=== PATIENT | female | born 2000 | race Asian ===

== ENCOUNTER → 2023-06-09 15:52 | Outpatient (CLI) | payer OTHER, SELFPAY ==
[2023-06-09 17:45] LABS: Add Manual Diff / Slide Review NO; Basophils Absolute Auto 0 /uL (0-100); Basophils Percent Auto 0.2 % (0-2); Eosinophils Absolute Auto 100 /uL (0-450); Eosinophils Percent Auto 0.7 % (2-4); Hemoglobin 10.2 g/dL (12.0-16.0); Lymphocytes Absolute Auto 1200 /uL (1100-4500); Lymphocytes Percent Auto 11.4 % (25-40); Mean Corpuscular HGB Conc 33.9 % (30-36); Mean Corpuscular Hemoglobin 20.7 PG (26-34); Mean Corpuscular Volume 61.2 fL (80-100); Monocytes Absolute Auto 600 /uL (0-900); Monocytes Percent Auto 5.4 % (3-14); Neutrophils Absolute Auto 8800 /uL (1500-7000); Neutrophils Percent Auto 82.3 % (50-75); Platelet Count 284 X10^3/uL (150-400); Red Blood Cell Count 4.91 X10^6/uL (4.0-5.2); Red Cell Distribution Width 15.9 % (11.6-14.8); White Blood Cell Count 10.7 X10^3/uL (4.5-11.0)
[2023-06-09 17:59] LABS: Microcytosis 1+
[2023-06-09 18:27] LABS: Appearance Urine UA CLEAR; Bilirubin Urine UA NEGATIVE (NEGATIVE); Color Urine UA YELLOW; Glucose Urine UA NEGATIVE (Negative); Ketones Urine UA NEGATIVE (NEGATIVE); Leukocyte Esterase Urine UA TRACE (NEGATIVE); Nitrite Urine UA NEGATIVE (Negative); Occult Blood Urine UA NEGATIVE (Negative); Protein Urine UA NEGATIVE (Negative); Specific Gravity Urine UA <=1.005 (1.000-1.035); Urobilinogen Urine UA 0.2 E.U./dL (0.2)
[2023-06-09 18:47] LABS: Bacteria Urine None Seen; Culture Indicated Urine Cult Not Indicated; RBC Urine None Seen (0-5/HPF); Squamous Epithelial Cell Urine 0-1 /HPF (0-5/HPF); Urine Volume 10mL (spun); WBC Urine None Seen (0-5/HPF)
[2023-06-09 19:45] LABS: Urine N gonorrhoeae NOT DETECTED
[2023-06-09 19:59] LABS: Urine Chlamydia NOT DETECTED
[2023-06-10 09:46] LABS: HEMOLYSIS < 15 (0-50); Iron 98 ug/dL (37-170)
[2023-06-10 09:57] LABS: Percent Iron Saturation 30 % (15-50); Total Iron Binding Capacity 332 ug/dL (265-497); Transferrin 297 mg/dL (206-381)
[2023-06-10 15:43] LABS: Hepatitis B Surface Antigen NEGATIVE s/c (NEGATIVE)
[2023-06-10 16:13] LABS: HIV 1 & 2 Ab/Ag 4th Gen Combo NEGATIVE (NEGATIVE); Hep C Virus Ab w/Reflex Quant NEGATIVE s/c (NEGATIVE)
[2023-06-11 03:30] LABS: RPR Screen Non Reactive (Non Reactive)
[2023-06-11 08:42] LABS: Varicella IgG Antibody <135 index (Immune >165)
== END ==
PROVIDERS: Referring Provider Family Medicine; Visit Provider Family Medicine
DX: Z34.01 Encounter for supervision of normal first pregnancy, first trimester (principal); R79.89 Other specified abnormal findings of blood chemistry
CPT/HCPCS: 36415; 80055; 81003; 81015; 83540; 83550; 86787; 86803; 86850; 86900; 86901; 87086; 87389; 87491; 87591

== ENCOUNTER → 2023-06-17 07:50 | Outpatient (CLI) | payer OTHER, SELFPAY ==
--- NOTE | 2023-06-17 07:52 | DI.US.S_ITS ---
PROCEDURE: US OB >= 14 WEEKS FETUS INDICATIONS: anatomy, uncertain dates OUTSIDE/PRIOR DATING DATA: Last menstrual period (LMP): 02/07/2023 LMP-based estimated date of delivery (DOUGLAS): 11/14/2023 First dating scan (date and location): 06/17/2023 Estimated date of delivery (DOUGLAS) from first dating scan: 11/24/2023 TECHNIQUE: Real-time scanning was performed of the fetus, with image documentation and biometric measurements. Endovaginal scanning: Not performed COMPARISON: None. FINDINGS: General: A single living intrauterine gestation is present. Presentation: Variable Placenta: Placental position is posterior, without previa. Amniotic fluid index: 8.2 cm, normal range is 5-24 cm. Single deepest vertical pocket is 2.4 cm. heart rate: 139 beats per minute. Maternal cervical canal: 3.3 cm long. Normal lower limit is 2.5 cm. biometrics: Biparietal diameter: 3.7 cm, 17 weeks 2 days Head circumference: 13.4 cm, 17 weeks 0 days Abdominal circumference: 11.9 cm, 17 weeks 4 days Femur length: 2.2 cm, 16 weeks 4 days Clinically estimated gestational age: 18 weeks 0 days Composite gestational age from present scan: 17 weeks 1 day Estimated weight and percentile: 182 g IMPRESSION: 1. Single live intrauterine . Estimated gestational age is 17 weeks 1 day, corresponding to an ultrasound DOUGLAS of 11/24/2023. 2. Recommend follow-up anatomic survey at 18-20 weeks gestation. Approved by: Ricky Dukes M.D. on 06/17/2023 at 8:53
[2023-06-17 09:46] LABS: Miscellaneous to LabCorp NATERA
== END ==
PROVIDERS: PCP Family Medicine; Referring Provider Family Medicine; Visit Provider Family Medicine
DX: Z3A.17 17 weeks gestation of pregnancy; Z34.02 Encounter for supervision of normal first pregnancy, second trimester
CPT/HCPCS: 36415; 76811

== ENCOUNTER → 2023-07-05 12:36 | Outpatient (CLI) | payer OTHER, SELFPAY ==
--- NOTE | 2023-07-05 12:37 | DI.US.S_ITS ---
PROCEDURE: US OB >= 14 WEEKS FETUS INDICATIONS: anatomy scan OUTSIDE/PRIOR DATING DATA: Last menstrual period (LMP): 02/07/2023. LMP-based estimated date of delivery (DOUGLAS): 11/14/2023. First dating scan (date and location): 06/17/2023. Estimated date of delivery (DOUGLAS) from first dating scan: 11/24/2023. The calculations are made using the ultrasound DOUGLAS of 11/24/2023. TECHNIQUE: Real-time scanning was performed of the fetus, with image documentation and biometric measurements. Endovaginal scanning: Not performed COMPARISON: [facility], , OB >= 14 WEEKS FETUS, 06/17/2023, 8:06. FINDINGS: General: A single living intrauterine gestation is present. Presentation: Breech. Placenta: Placental position is posterior , without previa. Amniotic fluid index: 9.1 cm, normal range is 5-24 cm. Single deepest vertical pocket is 2.7 cm. heart rate: 143 beats per minute. Maternal cervical canal: 3.3 cm long. Normal lower limit is 2.5 cm. biometrics: Biparietal diameter: 4.3 cm, 19 weeks 0 days Head circumference: 16.1 cm, 18 weeks 6 days Abdominal circumference: 13.5 cm, 19 weeks 0 days Femur length: 2.9 cm, 18 weeks 6 days Clinically estimated gestational age: 19 weeks 5 days Composite gestational age from present scan: 19 weeks 0 days Estimated weight and percentile: 264 g, 11 percentile Anatomic survey: Neuro: Ventricles are non-dilated at less than 10 mm. Cisterna magna is normal at 3-11 mm. Cerebellum is normal in size and morphology. Nuchal skin fold: Normal at less than 6 mm between 14-21 weeks gestational age. Face: Nose and lips, facial profile are normal. Spine: No evidence for spina bifida. Heart: 4-chambered heart is present, with normal ventricular outflow tracts. Diaphragm: Diaphragm is intact. Stomach: Left-sided stomach is present. Kidneys: No hydronephrosis. Normal is less than 5 mm in 2nd trimester, less than 7 mm in 3rd trimester. Cord: 3-vessel cord has orthotopic insertion. Bladder: Normal in size. Extremities: All 4 extremities identified. IMPRESSION: 1. Single live intrauterine consistent with 19 weeks and 0 days. 2. Normal anatomic survey. 3. Amniotic fluid index of 9.1 cm. 4. Estimated weight is in the 11th percentile. We strive to produce accurate, complete, and clear reports of imaging services. To assist us in improving patient care, this report was composed using standard report templates and voice recognition software. Therefore, it may contain abnormal punctuation, insertions and/or omissions. Occasional wrong-word or sound-alike substitutions may occur. Though we review the report and make efforts to correct it, we do recommend that the report be read carefully in proper context to recognize any text inaccuracies. Dictated by: Don Wilson M.D. on 07/05/2023 at 16:10 Approved by: Don Wilson M.D. on 07/05/2023 at 16:15
== END ==
LOC: US 12:36
PROVIDERS: PCP Family Medicine; Referring Provider Family Medicine; Visit Provider Family Medicine
DX: Z34.02 Encounter for supervision of normal first pregnancy, second trimester (principal); Z3A.19 19 weeks gestation of pregnancy
CPT/HCPCS: 76811

== ENCOUNTER → 2023-07-09 15:28 | Outpatient (CLI) | payer OTHER, SELFPAY | LOC: LAB 15:29 | PROVIDERS: PCP Family Medicine; Referring Provider Family Medicine; Visit Provider Family Medicine | DX: Z34.00 Encounter for supervision of normal first pregnancy, unspecified trimester (principal); D50.9 Iron deficiency anemia, unspecified | CPT/HCPCS: 36415; 83020 ==

== ENCOUNTER → 2023-08-06 15:11 | Outpatient (CLI) | payer OTHER, SELFPAY ==
--- NOTE | 2023-08-06 15:18 | DI.US.S_ITS ---
PROCEDURE: US OB LIMITED INDICATIONS: GROWTH ABNORMALITY OUTSIDE/PRIOR DATING DATA: Last menstrual period (LMP): 02/07/2023. LMP-based estimated date of delivery (DOUGLAS): 11/14/2023. First dating scan (date and location): 06/17/2023. Estimated date of delivery (DOUGLAS) from first dating scan: 11/24/2023. TECHNIQUE: Real-time scanning was performed of the fetus, with image documentation. COMPARISON: [facility], , OB >= 14 WEEKS FETUS, 07/05/2023, 12:50. FINDINGS: A single living intrauterine gestation is present. Presentation: Vertex Placenta: Placental position is posterior, without previa. Amniotic fluid index: 10.4 cm, normal range is 5-24 cm. Single deepest vertical pocket is 3.4 cm. heart rate: 157 beats per minute. Maternal cervical canal: 3 cm long. Normal lower limit is 2.5 cm. BPD is 5.7 cm, 23 weeks and 2 days Head circumference is 21 cm, 23 weeks Abdominal circumference is 18.5 cm, 23 weeks and 2 days Femur length is 4.4 cm, 24 weeks and 2 days Estimated gestational age is 24 weeks and 2 days. Biometry today measures 23 weeks and 3 days, EFW 616 g at the 17th percentile IMPRESSION: Living intrauterine gestation with EFW at the 17th percentile, within the lower limit of normal. Consider continued follow-up at clinical discretion. PAM is within normal limits. Dictated by: Josiah Donis M.D. on 08/06/2023 at 17:12 Approved by: Josiah Donis M.D. on 08/06/2023 at 17:15
[2023-08-06 16:31] LABS: Natera Collection Specimen Collected
== END ==
PROVIDERS: PCP Family Medicine; Referring Provider Student in an Organized Health Care Education/Training Program; Visit Provider Student in an Organized Health Care Education/Training Program
DX: D58.2 Other hemoglobinopathies (principal); O99.112 Other diseases of the blood and blood-forming organs and certain disorders involving the immune mechanism complicating pregnancy, second trimester; Z31.430 Encounter of female for testing for genetic disease carrier status for procreative management; Z3A.24 24 weeks gestation of pregnancy
CPT/HCPCS: 36415; 76815

== ENCOUNTER → 2023-09-03 12:33 | Outpatient (CLI) | payer OTHER, SELFPAY ==
[2023-09-03 14:47] LABS: GTT (PREG) 1 Hour PP 50gm Dose 115 mg/dL (76-139)
== END ==
PROVIDERS: PCP Family Medicine; Referring Provider Family Medicine; Visit Provider Family Medicine
DX: Z34.00 Encounter for supervision of normal first pregnancy, unspecified trimester (principal)
CPT/HCPCS: 36415; 82950

== ENCOUNTER → 2023-10-08 10:22 | Outpatient (CLI) | payer OTHER, SELFPAY ==
--- NOTE | 2023-10-08 10:22 | DI.US.S_ITS ---
PROCEDURE: US OB FOLLOW UP INDICATIONS: poor growth OUTSIDE/PRIOR DATING DATA: Last menstrual period (LMP): 02/07/2023. LMP-based estimated date of delivery (DOUGLAS): 11/14/2023. First dating scan (date and location): 06/17/2023. Estimated date of delivery (DOUGLAS) from first dating scan: 11/24/2023. The calculations are made using the sonographic DOUGLAS of 11/24/2023. TECHNIQUE: Real-time scanning was performed of the fetus, with image documentation and biometric measurements. Endovaginal scanning: Not performed COMPARISON: None. FINDINGS: General: A single living intrauterine gestation is present. Presentation: Breech. Placenta: Placental position is posterior , without previa. Amniotic fluid index: 7.2 cm, normal range is 5-24 cm. Single deepest vertical pocket is 3.1 cm. heart rate: 131 beats per minute. Maternal cervical canal: 2.3 cm long. Normal lower limit is 2.5 cm. biometrics: Biparietal diameter: 7.8 cm, 31 weeks 2 days Head circumference: 31.4 cm, 35 weeks 1 day Abdominal circumference: 27 cm, 31 weeks 1 day Femur length: 6.4 cm, 33 weeks 2 days Clinically estimated gestational age: 33 weeks 2 days Composite gestational age from present scan: 32 weeks 5 days Estimated weight and percentile: 1922 g, 14th percentile Anatomic survey: Neuro: Ventricles are normal at less than 10 mm. Cisterna magna is normal at 3-11 mm. Cerebellum is normal in size and morphology. Nuchal skin fold: Normal at less than 6 mm between 14 and 21 weeks gestational age. Face: Nose and lips, facial profile are normal. Spine: No evidence for spina bifida. Heart: 4-chambered heart is present, with normal ventricular outflow tracts. Diaphragm: Diaphragm is intact. Stomach: Left-sided stomach is present. Kidneys: No hydronephrosis. Normal is less than 5 mm in 2nd trimester, less than 7 mm in 3rd trimester. Cord: 3 vessel cord has orthotopic insertion. Bladder: Normal in size. Extremities: All 4 extremities are visualized. IMPRESSION: Single living intrauterine at 33 weeks 2 days, DOUGLAS of 11/24/2023. Estimated weight of 1922 g, 14th percentile. Incompetent cervix, measuring 2.3 cm. This may be underestimated due to transabdominal view. Dedicated transvaginal view can be considered. Normal anatomy survey. We strive to produce accurate, complete, and clear reports of imaging services. To assist us in improving patient care, this report was composed using standard report templates and voice recognition software. Therefore, it may contain abnormal punctuation, insertions and/or omissions. Occasional wrong-word or sound-alike substitutions may occur. Though we review the report and make efforts to correct it, we do recommend that the report be read carefully in proper context to recognize any text inaccuracies. Dictated by: Cristian Prabhakar M.D. on 10/08/2023 at 12:36 Approved by: Cristian Prabhakar M.D. on 10/08/2023 at 12:38
== END ==
PROVIDERS: PCP Family Medicine; Referring Provider Family Medicine; Visit Provider Family Medicine
DX: O34.33 Maternal care for cervical incompetence, third trimester (principal); Z3A.33 33 weeks gestation of pregnancy
CPT/HCPCS: 76816

== ENCOUNTER 2023-10-22 06:03 | Observation (INO) | payer OTHER, SELFPAY ==
[2023-10-22] MEDS: TERBUTALINE 1 MG/ML VIAL 0.25 MG SUBCUT (06:51)
[2023-10-22] MEDS: MINERAL OIL 30 ML UDC TOP (07:28)
--- NOTE | 2023-10-22 08:15 | PM.PROC.1 ---
Procedures Date/Time Date of procedure: 10/22/23 Time of procedure: 07:15 General Procedure description: External Cephalic Version Risks and benefits discussed with patient and partner. Verbal and written consent obtained. NST category 1 prior to procedure. Given SubQ terbutaline 20 minutes prior to starting. Patient positioned, mineral oil applied to abdomen. 3 attempts performed, 1 clock barriga and [address] Dr[address] Tellez and myself. FHT checked between each attempt, 140s. ECV not successful. Well tolerated by patient. No complications. Monitored for 1 hour following procedure. FHT category 1. Patient has routine f/u next week. Return precautions discussed. Plan to schedule for pCS at 39 weeks, trial of ECV prior to surgery.
[2023-10-23 22:06] LABS: Strep Grp B PCR NEG for Grp B Strep
== END 2023-10-22 08:55 | disposition home or self-care (01) ==
LOC: LABOR 06:06
PROVIDERS: Admitting Provider Family Medicine; PCP Family Medicine; Referring Provider Family Medicine; Visit Provider Family Medicine
DX: O32.1XX0 Maternal care for breech presentation, not applicable or unspecified (principal); Z3A.36 36 weeks gestation of pregnancy
CPT/HCPCS: 59025; 59050; 59412; 76815; 87653; 96372; G0378; A9270; G0379

== ENCOUNTER 2023-11-08 06:01 | Inpatient (IN) | payer OTHER, SELFPAY ==
[2023-11-08 07:05] VITALS: BP 117/70
--- NOTE | 2023-11-08 07:33 | PM.OBHP.1 ---
OB HPI Date/Time Date of admission: 11/08/23 Date Patient Seen: 11/08/23 History of Present Condition Chief complaint: INPT : 1 Para: 0 Estimated Gestational Age (weeks): 39w1d Narrative: Blaise Welsh is a 23 year old female at 39w1d today by LMP presenting for primary CS for breech presentation. complicated by Hgb E heterozygous. Feeling well today. No contractions, VB, LOF. Good FM. Indications Operative indications ( section): malpresentation History of Present care: good care Dating criteria: LMP confirmed by 2nd trimester US Preadmission Labs Blood type: B (+) positive [facility] Medical History (Updated 08/06/23 @ 13:55 by Marian Pederson MD) Heterozygous for Hb E Microcytic anemia Healthy adult Surgical History (Updated 06/09/23 @ 15:14 by Lola Melvin MD) History of nasal surgery No pertinent past surgical history Family History (Updated 06/07/23 @ 15:14 by Rosie Holden RN) Father Hypertension Mother Hypertension Grandmother Hypertension Grandfather Cancer Social History marital status: number of children: 0 household members: spouse and family ([id number]) lives independently: Yes caregiver/support person: No housing: house pets and animals: Yes (2 dogs) education level: high school occupational status: employed (waiting tables) current occupational exposures/hazards: Yes special brando needs: No travel history: recent (domestic only) seatbelt use: always helmet use: Yes water heater temp set < 120 deg: Yes working smoke detector in home: Yes fire extinguisher in home: No carbon monox detector in home: Yes firearms in home: Yes firearms unloaded and locked: Yes do you feel safe at home: Yes (answered by ) Smoking Status: Never smoker second hand exposure: No alcohol intake: former (occasionally when not ) substance use type: marijuana (not for a couple of years) during the past year weight has: remained stable well-balanced diet: rarely or never daily servings fruits/ve-1 caffeine: Yes (occasional tea) Type(s) of exercise: none and other (physical job waiting tables) Meds Home Medications and Allergies Home Medications Medication Instructions Recorded Confirmed Type vit no.95-ferrous 1 tab PO DAILY #30 tabs 10/01/23 10/28/23 Rx fumarate 28 mg-folic acid 800 mcg tablet ( Multivitamins) Allergies Allergy/AdvReac Type Severity Reaction Status Date / Time No Known Drug Allergies Allergy Verified 10/28/23 15:38 OB Exam Narrative Exam Narrative: GEN: NAD, well appearing, pleasant CV: RRR Pulm:normal WOB, CTAB Skin: no visible rashes, WWP Psych: normal affect Neuro: normal gait, symmetric movement BSUS breech FHT category 1 Assessment and Plan Assessment and Plan Assessment and Plan narrative: Primary CS for breech presentation -Admit to L&D -Routine orders -Pre op Ancef -Declines ECV prior Time-Based Coding :: [TOTAL MINUTES] spent with patient and on the chart (including review of chart, obtaining history, exam, reviewing outside data, placing orders, documenting exam and treatment plan, and counseling patient) on [DATE].
[2023-11-08] MEDS: CITRIC ACID/SODIUM CITRATE 15 ML SOLUTION 30 ML PO (07:46)
[2023-11-08] MEDS: CEFAZOLIN 2 GM/100 ML PREMIX 100 ML IV (08:07)
[2023-11-08] MEDS: ACETAMINOPHEN IV 1,000 MG/100 ML VIAL 400 MG IV (08:07)
--- NOTE | 2023-11-08 08:22 | SUR.OPER ---
Supine on Padded OR bed, head on pillow, safety belt at thigh, arms secured on padded arm boards at <90 degrees abduction. Bump under right buttock. Legs uncrossed with pillow under knees, gel pad to heels, tape over blanket to lower legs.
[2023-11-08 08:29] LABS: Add Manual Diff / Slide Review NO; Basophils Absolute Auto 0 /uL (0-100); Basophils Percent Auto 0.2 % (0-2); Eosinophils Absolute Auto 0 /uL (0-450); Eosinophils Percent Auto 0.4 % (2-4); Hematocrit 33.7 % (36-46); Hemoglobin 11.4 g/dL (12.0-16.0); Lymphocytes Absolute Auto 1900 /uL (1100-4500); Lymphocytes Percent Auto 17.2 % (25-40); Mean Corpuscular HGB Conc 33.7 % (30-36); Mean Corpuscular Hemoglobin 21.6 PG (26-34); Mean Corpuscular Volume 64.3 fL (80-100); Monocytes Absolute Auto 800 /uL (0-900); Monocytes Percent Auto 7.6 % (3-14); Neutrophils Absolute Auto 8100 /uL (1500-7000); Neutrophils Percent Auto 74.6 % (50-75); Platelet Count 248 X10^3/uL (150-400); Red Blood Cell Count 5.25 X10^6/uL (4.0-5.2); White Blood Cell Count 10.9 X10^3/uL (4.5-11.0)
[2023-11-08 08:47] LABS: Anisocytosis 2+; Microcytosis 2+
[2023-11-08 09:02] VITALS: BP 127/51; PULSE 82; RESP 18; TEMP 36.2; O2SAT 99
--- NOTE | 2023-11-08 09:05 | PM.OBCS.1 ---
Operative Date/Time/Diagnoses Date of procedure: 11/08/23 Pre-op diagnosis: primary section for breech presentation Post-op diagnosis: same Procedure & Clinicians Procedure: OPERATIVE COURSE: The patient was taken to the operating room where spinal anesthesia was placed. She was then prepared and draped in the normal sterile fashion in the dorsal supine position with a leftward tilt. Anesthesia was tested and found to be adequate. A Pfannensteil skin incision was then made with the scalpel and carried through to the underlying layer of fascia with the scalpel. The fascia was incised in the midline and the incision extended laterally with the Flores scissors. The superior aspect of the fascial incision was then grasped with Morgan clamps, elevated with the help of the surgical device sales representative, and the underlying rectus muscles dissected off bluntly and sharply where needed. Attention was then turned to the inferior aspect of the incision which, in a similar fashion, was grasped, tented up with Morgan clamps, and the rectus muscle dissected off bluntly and sharply with Flores scissors. The rectus muscles were then in the midline, and the peritoneum was identified and entered bluntly. The peritoneal incision was then extended with good visualization of the bladder. Retraction was provided by the surgical device sales representative. The bladder blade was then inserted and the vesicouterine peritoneum identified. The lower uterine segment incised in a transverse fashion with the scalpel, with the surgical device sales representative providing suction. The uterine incision was then extended superolaterally by pulling superolaterally on both sides. Membranes were ruptured and fluid was clear. The bladder blade was removed the was delivered using standard breech maneuvers. Cord blood was collected. The placenta was then delivered with gentle cord traction. The uterus was then exteriorized and cleared of all clots and debris. The uterine incision was repaired with 0-vicryl in a running, locked fashion. A second layer of the same suture was used to obtain excellent hemostasis. The uterus was returned to the abdomen. The gutters were cleared of all clots. Hysterotomy was investigated and found to be hemostatic. The fascia was reapproximated with 0-vicryl in a running fashion. The subcutaneous tissue was reapproximated with 2-0 vicryl. The skin was closed with 3-0 vicryl. The surgical device sales representative helped with retraction during closures. SPONGE AND NEEDLE COUNTS: Correct x3. DRESSING: pressure dressing ANTICOAGULATION: SCDs applied prior to Surgery Preop antibiotics given (see MAR). The patient was taken to recovery room having tolerated procedure well. Same procedure as scheduled: Yes Surgeon: Lola Melvin [employer] Designer: Jacqui Sim Anesthesia Type: Spinal Operative Notes Estimated Blood Loss (mL): 700 Post-operative Condition: stable Disposition: PACU
[2023-11-08 09:07] VITALS: BP 127/51; PULSE 80; RESP 18; O2SAT 100
[2023-11-08 09:13] VITALS: BP 113/58; PULSE 84; RESP 19; TEMP 36.3; O2SAT 100
[2023-11-08] MEDS: KETOROLAC 30 MG/ML VIAL IV ×2 (16:11→23:48)
[2023-11-08] MEDS: ACETAMINOPHEN 325 MG TABLET 650 MG PO ×2 (17:42→23:47)
[2023-11-09 02:45] VITALS: BP 115/68; PULSE 76; RESP 18; TEMP 36.7
[2023-11-09] MEDS: KETOROLAC 30 MG/ML VIAL IV (04:47)
[2023-11-09] MEDS: ACETAMINOPHEN 325 MG TABLET 650 MG PO ×4 (04:47→19:20)
--- NOTE | 2023-11-09 08:03 | PM.PN.1 ---
Subjective Subjective Date Patient Seen: 11/09/23 Interval history: Feeling well. Slept some. Breast feeding going well. Lochia is minimal. Pain controlled. Wade out and voiding. Passing gas. Ambulating without dizziness. Exam Vital Signs (past 8 hours): Oxygen Delivery Method Room Air Psych Other: GEN: NAD, well appearing, pleasant CV: RRR Pulm:normal WOB, CTAB ABD: fundus firm below Incision: steri strips in place, dried blood present - mod Skin: no visible rashes, WWP Psych: normal affect Neuro: normal gait, symmetric movement Objective Labs 11/08/23 06:30 Labs: Laboratory Results - last 24 hr 11/08/23 06:30 WBC 10.9 RBC 5.25 H Hgb 11.4 L Hct 33.7 L MCV 64.3 L MCH 21.6 L MCHC 33.7 RDW 17.0 H Plt Count 248 Neut % (Auto) 74.6 Lymph % (Auto) 17.2 L [place] % (Auto) 7.6 Eos % (Auto) 0.4 L Baso % (Auto) 0.2 Neut # (Auto) 8100 H Lymph # (Auto) 1900 [place] # (Auto) 800 Eos # (Auto) 0 Baso # (Auto) 0 RBC Morphology See below Anisocytosis 2+ H Microcytosis 2+ H SARS-CoV-2 (PCR) Cancelled Blood Type B Positive Antibody Screen Negative [facility] Medical History (Updated 11/09/23 @ 08:06 by Lola Melvin MD) Heterozygous for Hb E Microcytic anemia Healthy adult Surgical History (Updated 06/09/23 @ 15:14 by Lola Melvin MD) History of nasal surgery No pertinent past surgical history Family History (Updated 06/07/23 @ 15:14 by Rosie Holden RN) Father Hypertension Mother Hypertension Grandmother Hypertension Grandfather Cancer Social History marital status: number of children: 0 household members: spouse and family ([id number]) lives independently: Yes caregiver/support person: No housing: house pets and animals: Yes (2 dogs) education level: high school occupational status: employed (waiting tables) current occupational exposures/hazards: Yes special brando needs: No travel history: recent (domestic only) seatbelt use: always helmet use: Yes water heater temp set < 120 deg: Yes working smoke detector in home: Yes fire extinguisher in home: No carbon monox detector in home: Yes firearms in home: Yes firearms unloaded and locked: Yes do you feel safe at home: Yes (answered by ) Smoking Status: Never smoker second hand exposure: No alcohol intake: former (occasionally when not ) substance use type: marijuana (not for a couple of years) during the past year weight has: remained stable well-balanced diet: rarely or never daily servings fruits/ve-1 caffeine: Yes (occasional tea) 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
[2023-11-09 08:46] LABS: Add Manual Diff / Slide Review NO; Basophils Absolute Auto 100 /uL (0-100); Basophils Percent Auto 0.5 % (0-2); Eosinophils Absolute Auto 100 /uL (0-450); Eosinophils Percent Auto 0.7 % (2-4); Hematocrit 26.4 % (36-46); Hemoglobin 8.8 g/dL (12.0-16.0); Lymphocytes Absolute Auto 2000 /uL (1100-4500); Lymphocytes Percent Auto 14.7 % (25-40); Mean Corpuscular HGB Conc 33.2 % (30-36); Mean Corpuscular Hemoglobin 21.3 PG (26-34); Mean Corpuscular Volume 64.1 fL (80-100); Monocytes Absolute Auto 800 /uL (0-900); Neutrophils Absolute Auto 10500 /uL (1500-7000); Neutrophils Percent Auto 78.1 % (50-75); Platelet Count 175 X10^3/uL (150-400); Red Blood Cell Count 4.11 X10^6/uL (4.0-5.2); Red Cell Distribution Width 16.9 % (11.6-14.8); White Blood Cell Count 13.4 X10^3/uL (4.5-11.0)
[2023-11-09 08:58] LABS: Anisocytosis 2+; Poikilocytosis 2+
[2023-11-09] MEDS: PRENATAL VIT,CALC/IRON/FOLIC 1 TABLET 1 TAB PO (09:20)
[2023-11-09] MEDS: FERROUS SULFATE 325 MG TABLET PO (09:20)
[2023-11-09] MEDS: IBUPROFEN 600 MG TABLET PO ×2 (10:58→16:51)
[2023-11-10] MEDS: ACETAMINOPHEN 325 MG TABLET 650 MG PO ×3 (03:03→11:40)
[2023-11-10] MEDS: IBUPROFEN 600 MG TABLET PO ×3 (03:03→11:41)
--- NOTE | 2023-11-10 08:39 | PM.OBDS.1 ---
Discharge Providers Provider Date of admission: 11/08/23 06:01 Discharge Date: 11/10/23 Primary care physician: Lola Melvin MD Consults: 11/08/23 09:33 Consult to Recovery Operator Routine Comment: Discharge provider: Lola Melvin MD Summary Hospital Course Date Patient Seen: 11/10/23 Diagnoses: Term primary CS for breech Hospital Course: Blaise Welsh is a 23 year old female [id number] presented for pCS for breech presentation. Surgery uncomplicated. Hospitalization uncomplicated. Meeting all milestones - pain controlled, bleeding minimal, ambulating, voiding and passing gas. Peripartum Data Infant Delivery Method: Section complications: none Discharge Diagnosis (1) delivery delivered: Status: Acute Time Spent with Patient Time attestation: Total time spent providing and/or coordinating discharge services: Time spent: Less than 30 minutes Objective Labs 11/09/23 08:23 Labs: Laboratory Results - last 24 hr 11/09/23 08:23 WBC 13.4 H RBC 4.11 Hgb 8.8 L Hct 26.4 L MCV 64.1 L MCH 21.3 L MCHC 33.2 RDW 16.9 H Plt Count 175 Neut % (Auto) 78.1 H Lymph % (Auto) 14.7 L [place] % (Auto) 6.0 Eos % (Auto) 0.7 L Baso % (Auto) 0.5 Neut # (Auto) 15269 H Lymph # (Auto) 2000 [place] # (Auto) 800 Eos # (Auto) 100 Baso # (Auto) 100 RBC Morphology Not Reportable Poikilocytosis 2+ H Anisocytosis 2+ H Exam Vital Signs (past 8 hours): Oxygen Delivery Method Room Air Psych Other: GEN: NAD, well appearing, pleasant CV: RRR Pulm:normal WOB, CTAB Abd: fundus firm, below U Skin: no visible rashes, WWP Psych: normal affect Neuro: normal gait, symmetric movement Discharge Plan Discharge Plan Patient Disposition: Home Discharge orders & Medications Prescriptions: New acetaminophen 325 mg Tablet 650 mg PO Q6H Qty: 60 0RF ferrous sulfate 325 mg (65 mg iron) Tablet 325 mg PO DAILY Qty: 30 0RF docusate sodium 100 mg Capsule 100 mg PO DAILY Qty: 30 0RF ibuprofen 600 mg Tablet 600 mg PO Q6H Qty: 60 0RF oxycodone 5 mg Tablet 5 mg PO Q4H PRN (Reason: Pain, Moderate (4-6)) Qty: 10 0RF Prenatabs Rx 29 mg iron- 1 mg Tablet 1 tab PO DAILY Qty: 30 0RF Continued PNV cmb#95-ferrous fumarate-FA [ Multivitamins] 28 mg iron- 800 mcg tablet 1 tab PO DAILY Qty: 30 4RF Follow up/Referrals: Lola Melvin MD [Primary Care Provider] - Diet/Activity/Treatments Diet: Regular Visit Report/Discharge Packet Instructions: DI for Stand Alone Forms: Discharge: Care, Patient Portal/API, Stroke Signs & Symptoms Discharge Data Primary Care Provider: Lola Melvin
[2023-11-10] MEDS: FERROUS SULFATE 325 MG TABLET PO (08:41)
[2023-11-10] MEDS: PRENATAL VIT,CALC/IRON/FOLIC 1 TABLET 1 TAB PO (08:41)
[2023-11-10] MEDS: DOCUSATE 100 MG CAPSULE PO (08:41)
[2023-11-10] MEDS: LANOLIN OINT 7 GM 1 APPLIC TOP (08:43)
== END 2023-11-10 13:30 | disposition home or self-care (01) | DRG 788 ==
PROVIDERS: Admitting Provider Family Medicine; PCP Family Medicine; Referring Provider Family Medicine; Visit Provider Family Medicine
PROC: 10D00Z1 Extraction of Products of Conception, Low, Open Approach (ICD-10-PCS; CPT 59514; principal; 2023-11-08 07:45)
DX: O64.1XX0 Obstructed labor due to breech presentation, not applicable or unspecified (principal); Z3A.39 39 weeks gestation of pregnancy; Z37.0 Single live birth
CPT/HCPCS: 36415; 59050; 76815; 85025; 86850; 86900; 86901; J0136; J0690; J1885; J2274; J2405; J3010